=== PATIENT | female | born 1985 | race Caucasian/White ===

== ENCOUNTER 2016-07-24 20:55 | Emergency (ER) | payer OTHER ==
[2016-07-24 21:10] VITALS: PULSE 65; RESP 16; TEMP 98.1; O2SAT 97
[2016-07-24 21:12] VITALS: BP 92/57
[2016-07-24] MEDS ORDERED: TDAP ADULT 0.5 ML INJ (BOOSTRIX) IM ONE (21:12)
[2016-07-24] MEDS ORDERED: SKIN ADHESIVE (DERMABOND) 1 EACH TP ONE (21:49)
--- NOTE | 2016-07-24 22:00 | UCPHY ---
H & P Time Seen by Provider: 07/24/16 21:38 Patient Type: Established HPI/ROS: This patient was distracted while cutting an onion and sustained a laceration to the distal phalanx of the left 2nd finger with minimal bleeding shortly prior to arrival. She reports mild pain. The bleeding stopped with direct pressure. ROS: No difficulty moving finger. She has mild tingling to the area distal to the laceration. 5 point ROS is otherwise negative. Past Medical/Surgical History: Otherwise healthy with immunizations up-to-date. Smoking Status: Never smoked Physical Exam: Physical Exam Vital signs are normal. General: No acute distress Cardiac: Brisk capillary refill is intact throughout. Skin: No rash or pallor. She has a cm well-approximated laceration involves the lateral nail bed dorsum of 2nd finger Neuro: Alert and oriented x3 with no sensorimotor deficits. Constitutional: Initial Vital Signs Temperature (C) 36.7 C 07/24/16 21:07 Heart Rate 65 07/24/16 21:07 Respiratory Rate 16 07/24/16 21:07 Blood Pressure 92/57 L 07/24/16 21:07 O2 Sat (%) 97 07/24/16 21:07 O2 Delivery Mode Room Air Allergies/Adverse Reactions: Penicillins Allergy (Unknown, Verified 07/24/16 21:05) Home Medications: Medication Instructions Recorded MIRENA 07/24/16 07/24/16 MDM/Departure - MDM Procedures: Skin adhesive closure: After verbal consent our nurse cleaned the wound with baby shampoo and saline. I then closed the wound with Dermabond. Patient tolerated this well with no complications. She has been placed in a stack splint we counseled regarding wound care. Medications Given: Discontinued Medications Diphtheria/Tetanus/Acell Pertussis (Boostrix) 0.5 ml IM .ONCE ONE Stop: 07/24/16 21:13 Last Admin: 07/24/16 21:20 Dose: 0.5 ml - Depart Disposition: Home, Routine, Self-Care Clinical Impression: Finger laceration Qualifiers: Encounter type: initial encounter Qualifier Code: (S61.219A) Laceration without foreign body of unspecified finger without damage to nail, initial encounter Instructions: Skin Adhesive Care (ED) Additional Instructions: Diagnosis: Finger laceration Plan: Stack splint when your up and about It is okay to get the finger web do not scrub it. The glue should stay in for 7 -10 days in the meantime your wound should heal. Avoid putting any ointment on the glue as that would dissolve the glue. Return for bleeding or other concerns. Referrals: [facility],. [Primary Care Provider] - As per Instructions - PQRS PQRS Measurement: NA
== END 2016-07-24 22:13 | disposition home or self-care (01) ==
LOC: CED 20:55
DX: S61.211A Laceration without foreign body of left index finger without damage to nail, initial encounter (principal); W26.0XXA Contact with knife, initial encounter
CPT/HCPCS: 12001-PO; 99213-PO; G0463-PO

== ENCOUNTER 2016-07-28 13:15 | Emergency (ER) | payer OTHER ==
[2016-07-28 13:44] VITALS: BP 96/78; PULSE 77; RESP 16; TEMP 97.9; O2SAT 97
--- NOTE | 2016-07-28 14:29 | UCPHY ---
H & P Time Seen by Provider: 07/28/16 14:22 Patient Type: Established HPI/ROS: This patient presents for wound evaluation. On the of this month this patient accidentally cut her index finger and is now concerned because there has been discharge which is malodorous. The wound was closed with Dermabond. It is not particularly painful she has had no fever or constitutional symptoms. Smoking Status: Never smoked Physical Exam: This is a well-developed well-nourished female who is in no acute distress she is alert, lucid and entirely appropriate. Examination of the finger reveals a flap-type laceration over the radial side of the distal phalanx adjacent to the radial nail fold. The skin is quite pale and is probably not viable. The wound appears to be quite superficial. There is no evidence of infection. Constitutional: Initial Vital Signs Temperature (C) 36.6 C 07/28/16 13:41 Heart Rate 77 07/28/16 13:41 Respiratory Rate 16 07/28/16 13:41 Blood Pressure 96/78 L 07/28/16 13:41 O2 Sat (%) 97 07/28/16 13:41 O2 Delivery Mode Room Air Allergies/Adverse Reactions: Penicillins Allergy (Intermediate, Verified 07/28/16 13:41) Rash Home Medications: Medication Instructions Recorded 07/24/16 Medical Decision Making ED Course/Re-evaluation: The wound was redressed. Departure - Departure Disposition: Home, Routine, Self-Care Clinical Impression: Laceration re-check Condition: Good Instructions: Acute Wound Care (ED) Additional Instructions: Return for any suggestion of infection. If you notice spreading redness, swelling, increasing pain and tenderness or lina pus you should return immediately since these findings frequently indicate infection. It usually takes 3 days from the time of injury for an infection to begin. - PQRS PQRS Measurement: Not applicable
== END 2016-07-28 14:31 | disposition home or self-care (01) ==
LOC: CED 13:15
DX: S61.211D Laceration without foreign body of left index finger without damage to nail, subsequent encounter (principal)
CPT/HCPCS: 99213-PO; G0463-PO

== ENCOUNTER 2018-06-24 23:17 | Emergency (ER) | payer MEDICAID, OTHER ==
[2018-06-24 23:23] VITALS: BP 90/65
[2018-06-24] MEDS ORDERED: CLINDAMYCIN 150 MG CAP PO ONE (23:40)
--- NOTE | 2018-06-24 23:43 | EDPHY ---
H & P Smoking Status: Never smoked Time Seen by Provider: 06/24/18 23:31 HPI/ROS: Chief complaint: Sore throat History of present illness: This is a 33-year-old female who presents to the emergency department for sore throat. She has had symptoms for 4 days. She denies precipitating or alleviating factors. She denies other associated signs or symptoms including no fevers, no cough, no chest congestion, no rash or body aches. (Alex Strauss) Physical Exam: General Appearance: Alert and no distress. Eyes: Pupils equal and round no injection. ENT: Tympanic membranes, external auditory canals, external ears and surrounding soft tissue including over the mastoids are unremarkable. Nasopharynx is not injected. There is no rhinorrhea. Oropharynx is mildly injected. There is tonsillomegaly, right greater than left. There is pustular discharge on the tonsils. The uvula is midline. No elevation of the tongue. There is no hoarseness, no drooling, no trismus, no stridor. Respiratory: Chest is non tender, lungs are clear to auscultation. Cardiac: regular rate and rhythm Musculoskeletal: Neck is supple and non tender. Extremities have full range of motion and are non tender. Skin: No rashes or lesions. (Alex Strauss) Constitutional: Initial Vital Signs Temperature (C) 37.0 C 06/24/18 23:20 Heart Rate 83 06/24/18 23:20 Respiratory Rate 16 06/24/18 23:20 Blood Pressure 90/65 L 06/24/18 23:20 O2 Sat (%) 100 06/24/18 23:20 O2 Delivery Mode Room Air Allergies/Adverse Reactions: Penicillins Allergy (Intermediate, Verified 07/28/16 13:41) Rash Home Medications: Medication Instructions Recorded Clindamycin HCl [Clindamycin] 300 mg PO TID 10 Days cap 06/24/18 FLUoxetine 06/24/18 MDM/Departure - MDM Medications Given: Discontinued Medications Clindamycin (Clindamycin) 300 mg PO EDNOW ONE PRN Reason: Protocol Stop: 06/24/18 23:41 Last Admin: 06/24/18 23:59 Dose: 300 mg Dexamethasone (Decadron Injection) 10 mg PO EDNOW ONE Stop: 06/25/18 00:09 Last Admin: 12/23/18 00:12 Dose: 10 mg ED Course/Re-evaluation: Patient seen under the supervision of my secondary supervising physician Dr. Malou Monteiro. Patient presents to the emergency department for sore throat. She appears to have a tonsillitis. Right tonsil is slightly larger than left. I do not believe this represents a true abscess. She is given Decadron. She has a penicillin allergy with unclear reaction, she is therefore started on clindamycin. Home care is discussed. She is informed if symptoms worsen or new symptoms develop she should return to the emergency department. The patient voiced understanding and agreement with plan. (Alex Strauss) PHYSICIAN DOCUMENTATION: The patient was evaluated and managed by the Physician Check Clerk. My co- signature indicates that I have reviewed this chart and I agree with the findings and plan of care as documented. I am the secondary supervising physician. (Malou Monteiro) Differential Diagnosis: Included but not limited to pharyngitis, strep pharyngitis, tonsillitis, abscess formation (Alex Strauss) - Depart Disposition: Home, Routine, Self-Care Clinical Impression: Acute bacterial tonsillitis Condition: Good Instructions: Tonsillitis (ED) Additional Instructions: Follow-up with her primary care doctor next week for recheck Take all antibiotics as prescribed until finished even feeling better Use ibuprofen 600 mg 3 times a day for the next 2-3 days for pain If symptoms worsen or new symptoms develop return to the emergency room for recheck Prescriptions: Clindamycin HCl [Clindamycin] 300 mg PO TID 10 Days cap Referrals: Kellen Anderson PA [Primary Care Provider] - As per Instructions
[2018-06-25] MEDS ORDERED: DEXAMETHASONE 4 MG TAB PO ONE (00:03)
[2018-06-25] MEDS ORDERED: DEXAMETHASONE 10 MG/ML VIAL ONE (00:05)
[2018-06-25] MEDS ORDERED: DEXAMETHASONE 10 MG/ML VIAL PO ONE (00:08)
== END 2018-06-25 00:14 | disposition home or self-care (01) ==
DX: J03.90 Acute tonsillitis, unspecified (principal); Z88.0 Allergy status to penicillin
CPT/HCPCS: J1100

== ENCOUNTER 2018-12-23 22:22 | Emergency (ER) | payer MEDICAID, OTHER | END 2018-12-23 23:00 | disposition home or self-care (01) ==